=== PATIENT | male | born 1985 | race African-American/Black ===

== ENCOUNTER 2019-09-01 20:36 | Emergency (ER) | payer SELFPAY ==
[~2019-09-01] VITALS: Ht 172.7 cm; Wt 81.6 kg
[2019-09-01 20:57] VITALS: BP 140/70
== END 2019-09-01 21:29 | disposition home or self-care (01) ==
LOC: ER 20:39
DX: F15.10 Other stimulant abuse, uncomplicated (principal); R00.0 Tachycardia, unspecified